=== PATIENT | male | born 1945 | race Caucasian/White ===

== ENCOUNTER 2017-10-21 07:37 | Day surgery (SDC) | payer MEDICARE, OTHER ==
[2017-10-21] MEDS ORDERED: DIPHENHYDRAMINE HCL 50 MG/ML VIAL ONE (07:59)
[2017-10-21] MEDS ORDERED: ONDANSETRON HCL INJ/PF 4 MG/2 ML SDV ONE (08:00)
[2017-10-21] MEDS ORDERED: MIDAZOLAM 2 MG/2 ML INJ ONE ×2 (08:00→08:02)
[2017-10-21] MEDS ORDERED: NALOXONE HCL INJ/PF 0.4 MG/1 ML SDV ONE (08:00)
[2017-10-21] MEDS ORDERED: EPINEPHRINE INJ 1 MG/10 ML DISP.SYRIN ONE (08:02)
[2017-10-21] MEDS ORDERED: FLUMAZENIL INJ 0.5 MG/5 ML VIAL ONE (08:02)
[2017-10-21] MEDS ORDERED: FENTANYL CITRATE INJ/PF 100 MCG/2 ML AMPUL ONE (08:02)
[2017-10-21] MEDS ORDERED: GLUCAGON,HUMAN RECOMB 1 MG INJ ONE (08:03)
--- NOTE | 2017-10-21 08:55 | Operative Report ---
Operative Report DATE OF SURGERY: 10/21/17 Operative Report: The risks benefits and alternatives of the procedure explained to the patient in detail and informed consent is obtained.A GIF Olympus video scope was inserted into the patient's mouth and hypopharynx, the esophagus is identified intubated and insufflated, the scope was then advanced through the esophagus stomach and duodenum, retroflexion maneuver is done, the esophagus stomach and first and second portions of the duodenum examined PREOPERATIVE DIAGNOSIS: Melena POSTOPERATIVE DIAGNOSIS: Gastritis status post biopsy rule out Helicobacter pylori. Duodenitis. Hiatal hernia OPERATION: EGD with biopsy SURGEON: JAYDEN THRASHER ANESTHESIA: Moderate Sedation - 2 mg of Versed, 25 mcg of fentanyl. Conscious sedation monitoring time 30 minutes. TISSUE REMOVED OR ALTERED: As noted COMPLICATIONS: None. ESTIMATED BLOOD LOSS: None. INTRAOPERATIVE FINDINGS: As noted above. PROCEDURE: Patient tolerated procedure well. No immediate postprocedure complications are noted. Discharge in good condition. Discharge date 10/21/2017. Discharge diet: Regular. Discharge activity: Regular. 2-3 week follow-up to discuss findings. Patient is instructed call the office or proceed to the emergency room should there be any further problems or questions. We will wait on pathology.
[2017-10-21 10:15] VITALS: BP 109/65
== END 2017-10-21 10:20 | disposition home or self-care (01) ==
LOC: END 07:37
PROVIDERS: ATTEND Internal Medicine Gastroenterology
DX: K29.50 Unspecified chronic gastritis without bleeding (principal); K29.80 Duodenitis without bleeding; K44.9 Diaphragmatic hernia without obstruction or gangrene; K92.1 Melena; Z13.89 Encounter for screening for other disorder; I10 Essential (primary) hypertension; E78.5 Hyperlipidemia, unspecified; I48.91 Unspecified atrial fibrillation; C81.90 Hodgkin lymphoma, unspecified, unspecified site; F17.210 Nicotine dependence, cigarettes, uncomplicated; Z95.0 Presence of cardiac pacemaker; Z79.899 Other long term (current) drug therapy; Z79.51 Long term (current) use of inhaled steroids
CPT/HCPCS: 43239; 88305 ×2; J2250; J3010; J0171; J1200; J1610; J2310; J2405; J3490

== ENCOUNTER → 2018-06-17 | Outpatient (CLI) | payer MEDICARE ==
--- NOTE | 2018-06-17 13:08 | RADIOLOGY REPORT (SQ) ---
EXAM DESCRIPTION: CTA CHEST COMPLETED DATE/TIME: 06/17/2018 12:37 pm REASON FOR STUDY: R79.89 OTHER SPECIFIED ABNORMAL FINDINGS OF BLOOD CHEMISTRY R79.89 OTHER SPECIFIE D ABNORMAL FINDINGS OF BLOOD CHEMISTRY COMPARISON: Chest x-ray dated 06/15/2018. TECHNIQUE: CT scan of the chest performed using helical scanning technique with dynamic intravenous contrast injection. Images reviewed with lung, soft tissue and bone windows. Reconstructed coronal and sagittal MPR images reviewed. Additional 3 dimensional post-processing performed to develop Maximal Intensity Projection images (SD P). All images stored on PACS. All CT scanners at this facility use dose modulation, iterative reconstruction, and/or weight based d osing when appropriate to reduce radiation dose to as low as reasonably achievable (ALARA). [facility]: Dose Right [facility]: CareDose [facility]: Dose Right [facility]: Teradose 4D [facility]: IMVU CONTRAST TYPE AND DOSE: contrast/concentration: Isovue 350.00 mg/ml; Total Contrast Delivered: 70.0 ml; Total Saline Delivered: 110.0 ml Contrast bolus optimized for the pulmonary arteries. Not diagnostic for the aorta. RENAL FUNCTION: Creatinine 1.4. RADIATION DOSE: CT Rad equipment meets quality standard of care and radiation dose reduction techniq ues were employed. CTDIvol: 9.6 - 13.2 mGy. DLP: 380 mGy-cm. . LIMITATIONS: None. FINDINGS: LUNGS AND PLEURA: Fibrotic changes in the upper lobes. No masses, infiltrates, or pneumot horax. No pleural effusions or pleural calcifications. AORTA AND GREAT VESSELS: No aneurysm. Contrast bolus not optimized for the aorta. HEART: No pericardial effusion. No significant coronary artery calcifications. PULMONARY ARTERIES: No emboli visualized in the main pulmonary arteries or the segmental branches. HILAR AND MEDIASTINAL STRUCTURES: No identified masses or abnormal nodes. HARDWARE: Pacemaker. UPPER ABDOMEN: No significant findings. Limited exam. THYROID AND OTHER SOFT TISSUES: No masses. No adenopathy. BONES: No acute or significant finding. 3D MIPS: Confirm above findings. OTHER: No other significant finding. IMPRESSION: NORMAL CTA OF THE CHEST. NO PULMONARY EMBOLI. FIBROTIC CHANGES IN THE UPPER LOBES. NO ACUTE FINDINGS. COMMENT: Quality ID # [id number]: Final reports with documentation of one or more dose reduction techniques (e.g., Automated exposure control, adjustment of the mA and/or kV according to patient size, use of iterative reconstruction technique) TECHNICAL DOCUMENTATION: JOB ID: [id number] [employer]- All Rights Reserved Reading location - IP/workstation name: [email or web address]
== END ==
LOC: RAD 14:14
PROVIDERS: ATTEND Family Medicine
DX: R79.89 Other specified abnormal findings of blood chemistry (principal); Z95.0 Presence of cardiac pacemaker
CPT/HCPCS: 71275; 82565

== ENCOUNTER → 2018-07-07 | Outpatient (CLI) | payer MEDICARE ==
--- NOTE | 2018-07-08 08:02 | XCELERA REPORT ---
[address] [address] Upper Extremity Venous Evaluation Name: CORTNEY THORNE Age: 73 yrs Gender: Male : 1945 Patient Status: Outpatient Patient Location: Study Date: 07/07/2018 03:20 PM Procedure: Unilateral duplex scan of the left upper extremity veins was performed, including responses to compression and other maneuvers. Reason For Study: LUE SWELLING Ordering Physician: ABDOUL SMITH Performed By: Vanessa Cameron Left Sided Venous Evaluation Normal vessel filling wall to wall, compression and augmentation as well as Colour flow down to the forearm veins. Interpretation Summary No duplex evidence of DVT or obstruction in the left upper extremity. : ABDOUL SMITH > Berny Preciado
== END ==
LOC: SP 14:55
PROVIDERS: ATTEND Family Medicine
DX: M79.89 Other specified soft tissue disorders (principal)
CPT/HCPCS: 93971

== ENCOUNTER → 2018-10-28 | Outpatient (CLI) | payer MEDICARE ==
--- NOTE | 2018-10-28 13:54 | RADIOLOGY REPORT (SQ) ---
EXAM DESCRIPTION: CT CHEST WITHOUT COMPLETED DATE/TIME: 10/28/2018 12:40 pm REASON FOR STUDY: J44.9 CHRONIC OBSTRUCTIVE PULMONARY DISEASE, UNSPECIFIED J44.9 CHRONIC OBSTRUCTIV E PULMONARY DISEASE, UNSPECIFIED COMPARISON: 06/17/2018 TECHNIQUE: CT scan performed of the chest without intravenous contrast. Images reviewed with lung, soft tissue and bone windows. Reconstructed coronal and sagittal MPR images reviewed. All images st ored on PACS. All CT scanners at this facility use dose modulation, iterative reconstruction, and/or weight based d osing when appropriate to reduce radiation dose to as low as reasonably achievable (ALARA). [facility]: Dose Right [facility]: CareDose [facility]: Dose Right [facility]: Teradose 4D [facility]: [employer] RADIATION DOSE: CT Rad equipment meets quality standard of care and radiation dose reduction techniq ues were employed. CTDIvol: 12.3 mGy. DLP: 484 mGy-cm. mGy. LIMITATIONS: No technical limitations. FINDINGS: LUNGS AND PLEURA: Extensive fibrotic changes in the upper lobes. Slight increase in the p leural changes right upper lobe compared to previous. No focal masses. And HILAR AND MEDIASTINAL STRUCTURES: No identified masses or abnormal nodes. No obvious aneurysm. HEART AND VASCULAR STRUCTURES: Marked coronary artery calcification. UPPER ABDOMEN: No significant findings. Limited exam. THYROID AND OTHER SOFT TISSUES: No masses. No adenopathy. BONES: No significant finding. HARDWARE: Cardiac. OTHER: No other significant findings. IMPRESSION: Extensive fibrotic changes in the upper lobes with slight increase in the pleural change s on the right compared to previous. Marked coronary artery calcification. TECHNICAL DOCUMENTATION: JOB ID: [id number] Quality ID # [id number]: Final reports with documentation of one or more dose reduction techniques (e.g., Au tomated exposure control, adjustment of the mA and/or kV according to patient size, use of iterative reconstruction technique) 2010 [employer]- All Rights Reserved Reading location - IP/workstation name: [email or web address]
== END ==
LOC: RAD 12:31
PROVIDERS: ATTEND Internal Medicine Critical Care Medicine
DX: J44.9 Chronic obstructive pulmonary disease, unspecified (principal); C85.90 Non-Hodgkin lymphoma, unspecified, unspecified site; I48.91 Unspecified atrial fibrillation
CPT/HCPCS: 71250

== ENCOUNTER → 2019-05-14 | Outpatient (CLI) | payer MEDICARE ==
--- NOTE | 2019-05-14 12:04 | RADIOLOGY REPORT (SQ) ---
EXAM DESCRIPTION: CT CHEST WITHOUT COMPLETED DATE/TIME: 05/14/2019 10:37 am REASON FOR STUDY: R91.8 OTHER NONSPECIFIC ABNORMAL FINDING OF LUNG FIELD R91.8 OTHER NONSPECIFIC AB NORMAL FINDING OF LUNG FIELD COMPARISON: 10/28/2018 TECHNIQUE: CT scan performed of the chest without intravenous contrast. Images reviewed with lung, soft tissue and bone windows. Reconstructed coronal and sagittal MPR images reviewed. All images st ored on PACS. All CT scanners at this facility use dose modulation, iterative reconstruction, and/or weight based d osing when appropriate to reduce radiation dose to as low as reasonably achievable (ALARA). [facility]: Dose Right [facility]: CareDose [facility]: Dose Right [facility]: Teradose 4D [facility]: Smart [employer] RADIATION DOSE: CT Rad equipment meets quality standard of care and radiation dose reduction techniq ues were employed. CTDIvol: 8.6 mGy. DLP: 343 mGy-cm. mGy. LIMITATIONS: No technical limitations. FINDINGS: LUNGS AND PLEURA: Prominent upper lobe fibrotic changes. No identifiable mass. No pulmon mary infiltrate or pleural effusion. HILAR AND MEDIASTINAL STRUCTURES: No identified masses or abnormal nodes. No obvious aneurysm. HEART AND VASCULAR STRUCTURES: No aneurysm. No pericardial effusion. UPPER ABDOMEN: Multiple gallstones. THYROID AND OTHER SOFT TISSUES: No masses. No adenopathy. BONES: No significant or acute finding. HARDWARE: None in the chest. OTHER: No other significant findings. IMPRESSION: Stable upper lobe pulmonary fibrosis. Is there history of sarcoidosis? Cholelithiasis. TECHNICAL DOCUMENTATION: JOB ID: [id number] Quality ID # [id number]: Final reports with documentation of one or more dose reduction techniques (e.g., Au tomated exposure control, adjustment of the mA and/or kV according to patient size, use of iterative reconstruction technique) 2010 [employer]- All Rights Reserved Reading location - IP/workstation name: [email or web address]
== END ==
LOC: RAD 10:18
PROVIDERS: ATTEND Internal Medicine Critical Care Medicine
DX: R91.8 Other nonspecific abnormal finding of lung field (principal); J44.9 Chronic obstructive pulmonary disease, unspecified; J84.10 Pulmonary fibrosis, unspecified
CPT/HCPCS: 71250